=== PATIENT | female | born 1960 | race Caucasian/White ===

== ENCOUNTER 2022-03-25 15:31 | Inpatient (IN) | payer MEDICAID ==
[~2022-03-25] VITALS: Ht 160 cm; Wt 85.8 kg
[2022-03-25] MEDS ORDERED: MORPHINE SULFATE 4 MG/ML CPJ (NOT FOR IM USE) IV STA (17:19)
[2022-03-25] MEDS ORDERED: ONDANSETRON HCL 4MG/2ML INJ IV STA (17:19)
[2022-03-25] MEDS ORDERED: SODIUM CHLORIDE 0.9% 1,000 ML IV ONE (17:30)
[2022-03-25 18:12] LABS: CHLORIDE 109 mEq/L (98-107)
[2022-03-25] MEDS ORDERED: LEVOFLOXACIN 750MG PREMIX 150 ML IV ONE (19:00)
[2022-03-25] MEDS ORDERED: METRONIDAZOLE 500 MG PREMIX 100 ML IV ONE (19:00)
[2022-03-25 19:03] LABS: BASOPHILS % 0.3 % (0.0-2.0); EOSINOPHILS % 0.5 % (0.0-5.0); HEMATOCRIT. 37.5 % (36.0-48.0); HEMOGLOBIN. 12.9 g/dL (12.0-16.0); LYMPHOCYTES % 9.1 % (20.0-50.0); MEAN CORPUSCULAR HEMOGLOBIN 29.4 pg (28.0-32.0); MEAN PLATELET VOLUME 10.2 fl (7.4-10.4); MONOCYTES % 9.3 % (2.0-8.0); NEUTROPHILS % 80.8 % (40.0-76.0); RED BLOOD CELL COUNT 4.41 mill/uL (4.2-5.4); RED CELL DISTRIBUTION WIDTH 15.8 % (11.6-14.6)
[2022-03-25] MEDS ORDERED: ASPIRIN 81MG TABLET PO ONE (20:45)
[2022-03-25] MEDS ORDERED: ACETAMINOPHEN 325MG TABLET PO ONE (21:30)
[2022-03-26] MEDS ORDERED: HYDRALAZINE 20MG/ML VIAL IV PRN (00:30)
[2022-03-26] MEDS ORDERED: ACETAMINOPHEN 325MG TABLET PO PRN (00:30)
[2022-03-26] MEDS ORDERED: ZOLPIDEM TARTRATE 5MG TABLET PO PRN (00:30)
[2022-03-26] MEDS ORDERED: DIPHENHYDRAMINE 50MG/ML VIAL IV PRN (00:30)
[2022-03-26] MEDS ORDERED: DEXT 5%/0.9% NACL KCL 20MEQ/L 1,000 ML IV SCH ×2 (02:00→05:45)
[2022-03-26 05:41] LABS: HEMATOCRIT. 34.8 % (36.0-48.0); MEAN CORPUSCULAR HEMOGLOBIN 29.4 pg (28.0-32.0); MEAN CORPUSCULAR VOLUME 85.5 fL (81.0-99.0); MEAN PLATELET VOLUME 10.2 fl (7.4-10.4); RED BLOOD CELL COUNT 4.07 mill/uL (4.2-5.4)
[2022-03-26 05:46] LABS: PLATELET 30 x1000/uL (130-400)
[2022-03-26 05:49] LABS: CHLORIDE 110 mEq/L (98-107)
[2022-03-26 06:04] LABS: PHOSPHORUS 2.8 mg/dL (2.5-4.9)
[2022-03-26 06:44] LABS: PLATELET ESTIMATE MARKEDLY DECREASED
[2022-03-26 09:30] VITALS: BP 110/80
[2022-03-26] MEDS: PANTOPRAZOLE SODIUM 40 MG/VIAL IV SCH (10:26)
[2022-03-26 11:00] VITALS: BP 110/80
[2022-03-26 12:30] VITALS: BP 138/85
[2022-03-26] MEDS ORDERED: LISI20TA31 PO (13:02)
[2022-03-26 16:00] VITALS: BP 142/90
[2022-03-26] MEDS: ACETAMINOPHEN 325MG TABLET PO PRN (17:26)
[2022-03-26 20:00] VITALS: BP 144/77
[2022-03-26] MEDS ORDERED: LEVOFLOXACIN 500MG PREMIX 100 ML IV SCH (21:30)
[2022-03-26] MEDS: CARVEDILOL 3.125 MG TABLET PO SCH (22:43)
[2022-03-27] VITALS: BP 143/81
[2022-03-27] MEDS ORDERED: HYDROCODONE/ACETAMINOPHEN 5/325MG TABLET PO PRN
[2022-03-27] MEDS: ONDANSETRON HCL 4MG/2ML INJ IV PRN ×2 (00:03→11:04)
[2022-03-27] MEDS: ACETAMINOPHEN 325MG TABLET PO PRN ×4 (00:22→20:41)
[2022-03-27] MEDS ORDERED: MORPHINE SULFATE 2 MG/ML CPJ (NOT FOR IM USE) IV PRN (00:45)
[2022-03-27] MEDS ORDERED: IOHEXOL-350 100 ML BOTTLE ONE (01:17)
[2022-03-27] MEDS: LEVOFLOXACIN 500MG PREMIX 100 ML IV SCH (01:52)
[2022-03-27] MEDS: PROMETHAZINE/DEXTROMETHORPHAN 6.25-15MG/5ML BOTTLE 120ML PO PRN ×2 (01:53→15:42)
[2022-03-27 04:00] VITALS: BP 126/81
[2022-03-27] MEDS: LEVOTHYROXINE SODIUM 100MCG TABLET PO SCH (07:00)
[2022-03-27 07:17] LABS: INR 1.1; PROTHROMBIN TIME 11.9 sec (9.6-11.0)
[2022-03-27 07:40] LABS: CHLORIDE 108 mEq/L (98-107)
[2022-03-27 07:56] LABS: HEPATITIS B SURFACE ANTIGEN NEGATIVE
[2022-03-27 08:00] VITALS: BP 124/78
[2022-03-27 08:14] LABS: BASOPHILS % 0.5 % (0.0-2.0); EOSINOPHILS % 1.3 % (0.0-5.0); HEMATOCRIT. 35.1 % (36.0-48.0); LYMPHOCYTES % 15.3 % (20.0-50.0); MEAN CORPUSCULAR HEMOGLOBIN 29.7 pg (28.0-32.0); MEAN CORPUSCULAR VOLUME 87.2 fL (81.0-99.0); MEAN PLATELET VOLUME 10.7 fl (7.4-10.4); MONOCYTES % 12.2 % (2.0-8.0); NEUTROPHILS % 70.7 % (40.0-76.0); RED BLOOD CELL COUNT 4.02 mill/uL (4.2-5.4); RED CELL DISTRIBUTION WIDTH 15.7 % (11.6-14.6)
[2022-03-27 08:31] LABS: PLATELET 12 x1000/uL (130-400)
[2022-03-27] MEDS: PANTOPRAZOLE SODIUM 40 MG/VIAL IV SCH (08:51)
[2022-03-27] MEDS: CARVEDILOL 3.125 MG TABLET PO SCH ×2 (08:52→22:36)
[2022-03-27] MEDS: LISINOPRIL 20MG TABLET PO SCH (08:52)
[2022-03-27 12:15] VITALS: BP 141/88
[2022-03-27] MEDS: SODIUM CHLORIDE 0.9% 1,000 ML IV SCH (15:41)
[2022-03-27 16:30] VITALS: BP 135/69
[2022-03-27 20:00] VITALS: BP 132/75
[2022-03-28] VITALS: BP 118/62
[2022-03-28] MEDS: LEVOFLOXACIN 500MG PREMIX 100 ML IV SCH ×2 (00:54→21:15)
[2022-03-28 04:00] VITALS: BP 138/75
[2022-03-28] MEDS: ACETAMINOPHEN 325MG TABLET PO PRN ×2 (04:00→15:04)
[2022-03-28] MEDS: SODIUM CHLORIDE 0.9% 1,000 ML IV SCH ×2 (05:47→21:19)
[2022-03-28 06:09] LABS: CHLORIDE 108 mEq/L (98-107)
[2022-03-28] MEDS: LEVOTHYROXINE SODIUM 100MCG TABLET PO SCH (06:35)
[2022-03-28 06:38] LABS: BASOPHILS % 0.3 % (0.0-2.0); EOSINOPHILS % 1.8 % (0.0-5.0); HEMATOCRIT. 34.5 % (36.0-48.0); HEMOGLOBIN. 12.1 g/dL (12.0-16.0); LYMPHOCYTES % 19.6 % (20.0-50.0); MEAN CORPUSCULAR HEMOGLOBIN 29.8 pg (28.0-32.0); MEAN CORPUSCULAR VOLUME 85.1 fL (81.0-99.0); MEAN PLATELET VOLUME 10.7 fl (7.4-10.4); MONOCYTES % 14.1 % (2.0-8.0); NEUTROPHILS % 64.2 % (40.0-76.0); RED BLOOD CELL COUNT 4.06 mill/uL (4.2-5.4); RED CELL DISTRIBUTION WIDTH 15.8 % (11.6-14.6)
[2022-03-28 06:48] LABS: PLATELET 35 x1000/uL (130-400)
[2022-03-28 08:00] VITALS: BP 130/86
[2022-03-28] MEDS: LISINOPRIL 20MG TABLET PO SCH (09:38)
[2022-03-28] MEDS: CARVEDILOL 3.125 MG TABLET PO SCH ×2 (09:39→21:17)
[2022-03-28] MEDS: PANTOPRAZOLE SODIUM 40 MG/VIAL IV SCH (09:39)
[2022-03-28] MEDS ORDERED: POTASSIUM CHLORIDE 20MEQ/PACKET PO NR (11:45)
[2022-03-28 12:00] VITALS: BP 101/59
[2022-03-28 14:13] LABS: PLATELET 38 x1000/uL (130-400)
[2022-03-28 16:00] VITALS: BP 85/46
[2022-03-28] MEDS ORDERED: NALOXONE HCL 0.4MG/ML VIAL IV PRN (18:15)
[2022-03-28] MEDS ORDERED: ALBUTEROL 6.7GM HFA INHALER ORI PRN (19:30)
[2022-03-28] MEDS ORDERED: DEXAMETHASONE 2MG TABLET PO SCH (19:30)
[2022-03-28 20:00] VITALS: BP 115/59
[2022-03-29] VITALS: BP 112/75
[2022-03-29 04:00] VITALS: BP 121/81
[2022-03-29] MEDS: LEVOTHYROXINE SODIUM 100MCG TABLET PO SCH (06:25)
[2022-03-29] MEDS: SODIUM CHLORIDE 0.9% 1,000 ML IV SCH (06:27)
[2022-03-29 08:00] VITALS: BP 117/89
[2022-03-29] MEDS ORDERED: ERGOCALCIFEROL 50000UNITS CAPSULE PO SCH (09:00)
[2022-03-29] MEDS: CARVEDILOL 3.125 MG TABLET PO SCH ×2 (09:17→22:19)
[2022-03-29] MEDS: PANTOPRAZOLE SODIUM 40 MG/VIAL IV SCH (09:17)
[2022-03-29] MEDS: LISINOPRIL 20MG TABLET PO SCH (09:18)
[2022-03-29] MEDS: DEXAMETHASONE 6MG TABLET PO SCH (09:18)
[2022-03-29 12:00] VITALS: BP 140/81
[2022-03-29 12:08] LABS: CHLORIDE 105 mEq/L (98-107)
[2022-03-29 12:10] LABS: EOSINOPHILS % 0.1 % (0.0-5.0); HEMATOCRIT. 36.4 % (36.0-48.0); HEMOGLOBIN. 12.6 g/dL (12.0-16.0); LYMPHOCYTES % 13.3 % (20.0-50.0); MEAN CORPUSCULAR HEMOGLOBIN 29.6 pg (28.0-32.0); MEAN CORPUSCULAR VOLUME 85.1 fL (81.0-99.0); MEAN PLATELET VOLUME 10.5 fl (7.4-10.4); MONOCYTES % 3.1 % (2.0-8.0); NEUTROPHILS % 83.5 % (40.0-76.0); RED BLOOD CELL COUNT 4.28 mill/uL (4.2-5.4); RED CELL DISTRIBUTION WIDTH 15.8 % (11.6-14.6)
[2022-03-29 12:30] LABS: PLATELET 43 x1000/uL (130-400)
[2022-03-29 16:00] VITALS: BP 117/69
[2022-03-29 20:00] VITALS: BP 138/80
[2022-03-29] MEDS: LEVOFLOXACIN 500MG PREMIX 100 ML IV SCH (22:19)
[2022-03-30] VITALS: BP 151/73
[2022-03-30] MEDS: SODIUM CHLORIDE 0.9% 1,000 ML IV SCH (02:41)
[2022-03-30 04:00] VITALS: BP 139/82
[2022-03-30 06:44] LABS: BASOPHILS % 0.1 % (0.0-2.0); EOSINOPHILS % 0.1 % (0.0-5.0); HEMATOCRIT. 34.5 % (36.0-48.0); LYMPHOCYTES % 13.5 % (20.0-50.0); MEAN CORPUSCULAR HEMOGLOBIN 29.4 pg (28.0-32.0); MEAN CORPUSCULAR VOLUME 84.7 fL (81.0-99.0); MONOCYTES % 7.2 % (2.0-8.0); NEUTROPHILS % 79.1 % (40.0-76.0); RED BLOOD CELL COUNT 4.08 mill/uL (4.2-5.4); RED CELL DISTRIBUTION WIDTH 15.7 % (11.6-14.6)
[2022-03-30 06:56] LABS: CHLORIDE 110 mEq/L (98-107)
[2022-03-30 07:33] LABS: PLATELET 49 x1000/uL (130-400)
[2022-03-30 08:00] VITALS: BP 145/85
[2022-03-30] MEDS: LISINOPRIL 20MG TABLET PO SCH (09:50)
[2022-03-30] MEDS: PANTOPRAZOLE SODIUM 40 MG/VIAL IV SCH (09:50)
[2022-03-30] MEDS: LEVOTHYROXINE SODIUM 100MCG TABLET PO SCH (09:50)
[2022-03-30] MEDS: DEXAMETHASONE 6MG TABLET PO SCH (09:51)
[2022-03-30] MEDS: CARVEDILOL 3.125 MG TABLET PO SCH (09:51)
[2022-03-30 12:00] VITALS: BP 141/78
[2022-03-30 16:00] VITALS: BP 144/85
[2022-03-30 16:46] VITALS: BP 146/85
[2022-03-30] MEDS ORDERED: DEX6 MT (17:33)
== END 2022-03-30 19:45 | disposition home or self-care (01) | DRG 137 ==
LOC: ER 15:31 → MICUSO 23:38 → EDBEDREQTM 23:40 → EDBEDREQ 23:40 → 8WST 03-26 09:31 → 7WST 03-27 19:51
PROVIDERS: ADMIT Internal Medicine; ATTEND Internal Medicine
DX: U07.1 COVID-19 (principal); K55.9 Vascular disorder of intestine, unspecified; D69.6 Thrombocytopenia, unspecified; K76.6 Portal hypertension; C50.911 Malignant neoplasm of unspecified site of right female breast; K74.60 Unspecified cirrhosis of liver; I10 Essential (primary) hypertension; E03.9 Hypothyroidism, unspecified; K57.90 Diverticulosis of intestine, part unspecified, without perforation or abscess without bleeding; Z88.8 Allergy status to other drugs, medicaments and biological substances; Z90.11 Acquired absence of right breast and nipple; Z85.3 Personal history of malignant neoplasm of breast
CPT/HCPCS: 36415; 71045; 71275; 74176; 76700; 80048; 80053; 80076; 82140; 82270; 82962; 83036; 83735; 83880; 84100; 84443; 84484; 85025; 86705; 86709; 86803; 86850; 86900; 87340; 87426; 93005; 93970; 99285; C9113; J1956; J2270; J2405; J3490; J7030; J8540; Q9967